=== PATIENT | male | born 1970 | race Caucasian/White ===

== ENCOUNTER 2021-01-25 15:26 | Inpatient (IN) | payer OTHER ==
[~2021-01-25] VITALS: Ht 190.5 cm; Wt 111.1 kg
[2021-01-25 17:05] LABS: HEMOGLOBIN 16.4 gm/dl (14.0-17.5); RED BLOOD COUNT 4.88 M/UL (4.20-5.50); WHITE BLOOD COUNT 13.9 K/UL (4.5-11.0)
[2021-01-25 17:33] LABS: BUN/CREATININE RATIO 14 (0-10)
[2021-01-25 22:10] LABS: BORDETELLA PARAPERTUSSIS Not Detected (Not Detectd); BORDETELLA PERTUSSIS Not Detected (Not Detectd); CHLAMYDIA PNEUMONIAE Not Detected (Not Detectd); CORONAVIRUS HKU1 Not Detected (Not Detectd); CORONAVIRUS NL63 Not Detected (Not Detectd); CORONAVIRUS OC43 Not Detected (Not Detectd); CORONOAVIRUS 229E Not Detected (Not Detectd); HUMAN METAPNEUMOVIRUS Not Detected (Not Detectd); HUMAN RHINOVIRUS/ENTEROVIRUS Not Detected (Not Detectd); INFLUENZA A Not Detected (Not Detectd); INFLUENZA B Not Detected (Not Detectd); MYCOPLASMA PNEUMONIAE Not Detected (Not Detectd); PARAINFLUENZA VIRUS 1 Not Detected (Not Detectd); PARAINFLUENZA VIRUS 2 Not Detected (Not Detectd); PARAINFLUENZA VIRUS 3 Not Detected (Not Detectd); PARAINFLUENZA VIRUS 4 Not Detected (Not Detectd); RESPIRATORY SYNCYTIAL VIRUS Not Detected (Not Detectd)
[2021-01-25] MEDS ORDERED: FLOMAX 0.4 MG0.4 MG PO (22:22)
[2021-01-25] MEDS ORDERED: NORVASC5 MG PO (22:22)
[2021-01-25] MEDS ORDERED: RISPERIDONE0.5 MG PO (22:23)
[2021-01-25] MEDS ORDERED: IBUPROFEN600 MG PO (22:23)
[2021-01-25] MEDS ORDERED: ZOLOFT50 MG PO (22:24)
[2021-01-26 06:53] LABS: HEMOGLOBIN 15.8 gm/dl (14.0-17.5); RED BLOOD COUNT 4.81 M/UL (4.20-5.50); WHITE BLOOD COUNT 14.4 K/UL (4.5-11.0)
[2021-01-26 07:57] LABS: SARS-CoV-2 NOT DETECTED (Not Detectd)
[2021-01-26 09:37] LABS: BUN/CREATININE RATIO 18 (0-10)
[2021-01-26] MEDS ORDERED: ASPIRIN EC81 MG PO (10:19)
[2021-01-26] MEDS ORDERED: PROAIR DIGIHAL90 MCG INH (10:20)
[2021-01-27 08:57] LABS: BUN/CREATININE RATIO 26 (0-10)
[2021-01-27] MEDS ORDERED: LEVOFLOXACIN500 MG PO (10:05)
[2021-01-27] MEDS ORDERED: SYMBICORT 80-41 INHA INH (10:05)
[2021-01-27] MEDS ORDERED: NICOTINE PATCH1 EACH TD (10:05)
[2021-01-27] MEDS ORDERED: PREDNISONE 20 M20 MG PO (10:13)
[2021-01-31 15:14] LABS: ORGANISM ID Not indicated. (.); SPECIMEN SOURCE Urine (.); STREPTOCOCCUS PNEUMONIAE AG Negative (Negative)
== END 2021-01-27 13:17 | disposition home or self-care (01) | DRG 193 ==
LOC: ER1 15:26 → CDU 17:59 → MED SURG 4 21:14
PROVIDERS: Emergency Medicine; ADMIT Internal Medicine Infectious Disease
DX: J12.9 Viral pneumonia, unspecified (principal); J96.01 Acute respiratory failure with hypoxia; J45.901 Unspecified asthma with (acute) exacerbation; Z20.822 Contact with and (suspected) exposure to COVID-19; E87.1 Hypo-osmolality and hyponatremia; J15.9 Unspecified bacterial pneumonia; F17.210 Nicotine dependence, cigarettes, uncomplicated; F41.9 Anxiety disorder, unspecified; F32.9 Major depressive disorder, single episode, unspecified; I73.1 Thromboangiitis obliterans [Buerger's disease]; I10 Essential (primary) hypertension; Z79.82 Long term (current) use of aspirin; Z89.022 Acquired absence of left finger(s); Z89.021 Acquired absence of right finger(s); Z88.2 Allergy status to sulfonamides
CPT/HCPCS: 36415; 36600; 71045; 71046; 80048; 80053; 82550; 82553; 82728; 82803; 83605; 83615; 83874; 83880; 84484; 85025; 85379; 86140; 87040; 87278; 87633; 87899; 93005; 94640; 94664; 94760; 99285; J0696; J1100; J1650; J1956; J2930; J7040; U0002

== ENCOUNTER 2021-12-28 12:53 | Emergency (ER) | payer OTHER ==
[~2021-12-28 12:53] MED LIST: ASPIRIN EC81 MG PO; FLOMAX 0.4 MG0.4 MG PO; IBUPROFEN600 MG PO; LEVOFLOXACIN500 MG PO; NICOTINE PATCH1 EACH TD; NORVASC5 MG PO; PREDNISONE 20 M20 MG PO; PROAIR DIGIHAL90 MCG INH; RISPERIDONE0.5 MG PO; SYMBICORT 80-41 INHA INH; ZOLOFT50 MG PO
[2021-12-28] MEDS ORDERED: BACTRIM DS TAB1 EACH PO (14:59)
[2021-12-28] MEDS ORDERED: CEPHALEXIN500 MG PO (14:59)
== END 2021-12-28 15:22 | disposition home or self-care (01) ==
LOC: ER1 12:53
DX: L02.413 Cutaneous abscess of right upper limb (principal); F17.210 Nicotine dependence, cigarettes, uncomplicated; Z88.2 Allergy status to sulfonamides; Z88.8 Allergy status to other drugs, medicaments and biological substances
CPT/HCPCS: 73090; 99283